=== PATIENT | female | born 1950 | race Caucasian/White ===

== ENCOUNTER 2017-05-12 05:09 | Emergency (ER) | payer MEDICARE ==
[~2017-05-12] VITALS: Ht 160 cm; Wt 62.6 kg
--- NOTE | ~2017-05-12 | US67 ---
[facility] A Service of [facility] RADIOLOGY TEXT RESULTS PATIENT: KHANH ROA LOCATION: [facility] : [birth year] UNIT #: [id number] AGE: [address]: Ebenezer Oneil MD SEX: F ORDER DR: [id number] [facility] [address] [place], [place] [address] [id number] E MR#: [id number] Acc #: [id number] NAME: KHANH ROA : 1950 SEX: F STUDY DATE/TIME: 05/12/2017 8:44 UNIT: [facility] ROOM: STUDY DESCRIPTION: Gallbladder Attending Physician: Ebenezer Oneil M.D. Ordering Physician: Ebenezer Oneil M.D. Primary Care Physician: Jairo Gonzales M.D. MEDICAL IMAGING REPORT This report is preliminary unless electronic signature is present EXAM Gallbladder ultrasound, 05/12. INDICATIONS Severe epigastric pain since 11 o'clock last night. FINDINGS Sonographic evaluation is performed of the right upper quadrant in multiple planes. Comparison made with CT abdomen from 08/06/2010. Pancreas is normal. Liver parenchyma is homogeneous and normal with no focal mass. Main portal vein is patent by Doppler. Right kidney is morphologically normal and nonobstructed. Gallbladder contains multiple stones, including a stone at the gallbladder neck. There is no gallbladder wall thickening or pericholecystic fluid. Common duct is normal for patient age at 7 mm internal diameter. Music Executive notes a negative sonographic Erickson's sign. IMPRESSION Cholelithiasis. The gallbladder is otherwise normal and there is no biliary obstruction. Remainder of the right upper quadrant ultrasound is within normal limits as well. Dictated by... Ebenezer Pineda Jr., M.D. THIS IS AN ELECTRONICALLY VERIFIED REPORT Ebenezer Pineda Jr., M.D. at 05/12/2017 3:48 PM DAVID/chung TD: 05/12/2017 13:34 JOB #: [id number] MEDICAL IMAGING REPORT [facility] A Service of [facility] RADIOLOGY TEXT RESULTS PATIENT: [facility]ANH [id number] [birth year] UNIT #: [id number] AGE: [address]: Ebenezer Oneil MD SEX: F ORDER DR: Page 1 of 1 COPY
--- NOTE | ~2017-05-12 | EKG ---
PATIENT: KHANH ROA UNIT #: [id number] Ventricular Rate: 67 BPM Atrial Rate: 67 BPM P-R Interval: 184 ms QRS Duration: 80 ms Q-T Interval: 440 ms QTC Calculation(Bezet): 464 ms P [place]: 60 degrees Calculated R [place]: 58 degrees Calculated T [place]: 28 degrees Diagnosis Line: Sinus rhythm with Premature supraventricular Diagnosis Line: complexes and Fusion complexes Diagnosis Line: Low voltage QRS Diagnosis Line: Septal infarct , age undetermined Diagnosis Line: Abnormal ECG Diagnosis Line: No previous ECGs available Diagnosis Line: Confirmed by KENYON RAMIREZ MD ([id number]) on 05/12/2017 Diagnosis Line: 10:11:12 PM INTERPRETING MD: ASHLEY CONTRERAS
[~2017-05-12 05:09] MED LIST: ALLEGRA PO; ASPIRIN PO; FISH OIL 1,0001 CAP PO; LOTREL 5/10 PO; MULTI-VITAMIN1 TAB PO
[2017-05-12 06:36] LABS: URINE SOURCE CLEAN CATCH
[2017-05-12 06:41] LABS: POC - CKMB 1.5 ng/mL (0.0-7.9); POC - TROPONIN <0.05 ng/mL (<=0.05)
[2017-05-12 06:47] LABS: URINE APPEARANCE TURBID; URINE BILIRUBIN NEG (NEG); URINE BLOOD 1+ (NEG); URINE COLOR YELLOW; URINE GLUCOSE NEG (NEG); URINE KETONE NEG (NEG); URINE LEUKOCYTE ESTERASE NEG (NEG); URINE NITRATE NEG (NEG); URINE PH 8.5 (5-8); URINE PROTEIN NEG (NEG); URINE SPECIFIC GRAVITY 1.014 (1.003-1.035); URINE UROBILINOGEN 0.2 MG/DL (NEG)
[2017-05-12 06:51] LABS: BASOPHIL# 0.1 X10e3 (0-0.3); BASOPHIL% 0.4 % (0-2.5); DIFF IND NO; EOSINOPHIL% 0.2 % (0.0-7.0); HEMATOCRIT 45.7 % (35.0-45.0); HEMOGLOBIN 15.3 gm/dL (12.0-16.0); LYMPHOCYTE# 1.3 X10e3 (1.0-3.5); LYMPHOCYTE% 10.1 % (17.0-45.0); MEAN CELL VOLUME 87.5 FL (83-96); MEAN CORPUSCULAR HEMOGLOBIN 29.2 PG (28-34); MEAN CORPUSCULAR HGB CONC 33.4 g/dL (30-36); MEAN PLATELET VOLUME 9.4 FL (6.5-11.5); MONOCYTE# 0.7 X10e3 (0-1.0); MONOCYTE% 5.5 % (3.0-12.0); NEUTROPHIL# 10.7 X10e3 (1.5-7.1); NEUTROPHIL% 83.8 % (40-75); PLATELET COUNT 201 X10e3 (140-420); RED BLOOD COUNT 5.23 X10e (3.90-5.30); RED CELL DISTRIBUTION WIDTH 14.1 % (11.0-15.5); WHITE BLOOD COUNT 12.7 X10e3 (4.0-10.5)
[2017-05-12 06:51] LABS: URINE BACTERIA AUWI NEG (NEGATIVE); URINE SQUAMOUS EPITHELIAL CELL NONE SEEN /[HPF]; UWBCS1 AUWI 0-2 (0-5)
[2017-05-12 07:03] LABS: CULTURE INDICATED? NO
[2017-05-12 07:06] LABS: URINE AMORPHOUS SEDIMENT AMORP PHOSPHATES
[2017-05-12 07:16] LABS: ALBUMIN SERUM 4.7 g/dL (3.5-5.0); BILIRUBIN, DIRECT 0.1 mg/dL (0.0-0.2); BILIRUBIN,INDIRECT 0.7 mg/dL (0.0-0.9); BILIRUBIN,TOTAL 0.8 mg/dL (0.2-2.0); CALCIUM SERUM 9.8 mg/dL (8.4-10.2); GLOM FILT RATE Estimated 57.9 mL/min (>60); POTASSIUM 3.7 mmol/L (3.5-5.1); PROTEIN TOTAL SERUM 7.7 g/dL (6.0-8.3)
[2017-05-22] MEDS ORDERED: VISION VITAMIN1 EACH PO (12:04)
[2017-05-22] MEDS ORDERED: EFFEXOR37.5 MG PO (12:04)
[2017-05-22] MEDS ORDERED: LOVASTATIN20 M1 PO (12:04)
[2017-05-22] MEDS ORDERED: AMLODIPINE-BEN1 EAC1 PO (12:04)
[2017-05-22] MEDS ORDERED: HARD NAILS2500 MCG PO (12:05)
[2017-05-22] MEDS ORDERED: ASPIRIN81 M2 PO (12:05)
[2017-05-22] MEDS ORDERED: RESVERATROL100 MG PO (12:05)
[2017-05-22] MEDS ORDERED: VITAMIN D35000 UNIT PO (12:05)
[2017-05-22] MEDS ORDERED: [UNRECOGNIZED DRUG - REMARK] (12:06)
== END 2017-05-12 10:13 | disposition home or self-care (01) ==
LOC: CED 05:09
PROVIDERS: Emergency Medicine
DX: K80.50 Calculus of bile duct without cholangitis or cholecystitis without obstruction (principal); I10 Essential (primary) hypertension; F17.200 Nicotine dependence, unspecified, uncomplicated
CPT/HCPCS: 36415; 76705; 80048; 80076; 81003; 82150; 82553; 83690; 84484; 85025; 93005; 96361; 96374; 96375; 99285; J1885; J2270; J2405

== ENCOUNTER → 2017-05-22 | Outpatient (CLI) | payer OTHER ==
[~2017-05-22] MED LIST changes: +AMLODIPINE-BEN1 EAC1 PO; +ASPIRIN81 M2 PO; +EFFEXOR37.5 MG PO; +HARD NAILS2500 MCG PO; +LOVASTATIN20 M1 PO; +RESVERATROL100 MG PO; +VISION VITAMIN1 EACH PO; +VITAMIN D35000 UNIT PO; +[UNRECOGNIZED DRUG - REMARK]
[2017-05-22 13:12] LABS: ALBUMIN SERUM 4.1 g/dL (3.5-5.0); BILIRUBIN,TOTAL 0.5 mg/dL (0.2-2.0); BUN/CREATININE RATIO 21.25; CALCIUM SERUM 9.5 mg/dL (8.4-10.2); CREATININE SERUM 0.8 mg/dL (0.6-1.4); GLOM FILT RATE Estimated 75.3 mL/min (>60); PROTEIN TOTAL SERUM 6.9 g/dL (6.0-8.3)
== END | disposition home or self-care (01) ==
LOC: CAMB 11:33
PROVIDERS: Surgery
DX: Z01.812 Encounter for preprocedural laboratory examination (principal)
CPT/HCPCS: 36415; 80053

== ENCOUNTER → 2017-05-29 | Day surgery (SDC) | payer MEDICARE ==
--- NOTE | ~2017-05-29 | OR ---
Unit #: [id number] #: [id number] Patient: KHANH ROA [id number] [address] [place], [place] [address] [id number] O MR#: [id number] NAME: KHANH ROA ROOM: Date of Procedure: 05/29/2017 Admission Date: 05/29/2017 Surgeon: Jasmeet Watson Jr., M.D. : 1950 Attending Physician: Jasmeet Watson Jr., M.D. Primary Care Physician: Jairo Gonzales M.D. OPERATIVE REPORT INDICATIONS FOR PROCEDURE The patient is a 67-year-old white female, recently presented to the office complaining of intermittent mid epigastric and right upper quadrant abdominal pain. She has been worked up, noted to have evidence of chronic cholecystitis and cholelithiasis. It was felt she has been having biliary colic. She is brought in this time for laparoscopic cholecystectomy at her request. She understands the procedure including the risk and consents. Preoperative liver function tests are normal. PREOPERATIVE DIAGNOSES Chronic cholecystitis, cholelithiasis with biliary colic. POSTOPERATIVE DIAGNOSES Acute and chronic cholecystitis with cholelithiasis. Also, noted instantly was a small hernia in the right lower quadrant abdominal wall area near the inguinal region. ANESTHESIA General with endotracheal intubation and 0.5% Marcaine with epinephrine locally. SECURITY SOFTWARE ENGINEER Marylou Sauceda. PROCEDURE PERFORMED Laparoscopic cholecystectomy with lysis of adhesions. DESCRIPTION OF PROCEDURE The patient was positioned in supine position. After being anesthetized and intubated, she was prepped and draped in routine fashion for laparoscopic cholecystectomy. A small 0.5-cm incision was made in the right lateral abdominal wall area and a 5-mm Optiview was introduced in the abdomen. The abdomen was then inflated and the camera introduced and there was no evidence of any injury related to introduction of the Optiview. Brief intra-abdominal exploration was carried out. The patient was noted to have adhesions stuck to the gallbladder, but no significant adhesions in the lower abdomen. A 0.5 cm incision was made below the umbilicus. A 5-mm port was placed in this area and the camera shifted to this port. An additional 5-mm port was placed laterally to the initial Optiview port and 11-mm port just to the right of the upper midline. The gallbladder was then noted to be significantly inflamed, both acutely and chronically. It was then lifted. Multiple adhesions were dissected free Unit #: [id number] #: [id number] Patient: KHANH ROA by both sharp and blunt dissection. After mobilizing the adhesions from the gallbladder, dissection was carried out in the triangle of Calot. The anatomy was somewhat distorted in the triangle of Calot and special care was taken not to have any complications with the common duct problem. Cystic duct and cystic artery were both dissected out. The right hepatic artery was very dominant and very obvious in this area. Also, the common duct appeared normal. The cystic artery was hemoclipped x3, and divided. Cystic duct was hemoclipped x4 and divided, approximately a centimeter from its junction with the common duct. The gallbladder was then removed from its bed with the hook cautery using a current of 20, and there were significant inflammatory changes posterior to the gallbladder and it was also intrahepatic at stone. After it was released, it was placed in EndoCatch bag and brought out through the larger port site and sent to Pathology. The port was replaced. Subhepatic space irrigated. A small amount of oozing from the gallbladder bed was then controlled with the hook cautery using a current of 30 and after total hemostasis was noted, the clips on cystic duct and cystic artery were visualized with no evidence of any leak or bleeding. After a small amount of blood was then removed with the suction, the area was again checked and there was no evidence of any bleeding at all noted. The fascia in the larger port site was approximated with the neoClose technique and the ports were removed. There was no evidence any bleeding from the port sites. The port sites were injected with 0.5% Marcaine with epinephrine and irrigated and coagulated with Bovie cautery. After hemostasis was noted, the skin edges on all the wounds were approximated with stainless-steel skin clips and skin stapling device. Sterile dressings were applied externally. Estimated blood loss approximately 100 mL. The patient received a total of approximately 1500 to 2000 mL of crystalloid solution during the procedure. Sponges and instruments counts were correct x3. No drains used. No complications. The patient was taken to the recovery room with stable vital signs in satisfactory condition. Dictated by... Jasmeet Watson Jr., M.D. SHANTEL/melania TD: 05/30/2017 10:05 JOB #: [id number] CC: Jairo Gonzales M.D. OPERATIVE REPORT Page 1 of 1 X Jasmeet Watson MD PROCEDURE OPERATIVE NOTE
== END | disposition home or self-care (01) ==
LOC: CSUR 08:29
DX: K80.10 Calculus of gallbladder with chronic cholecystitis without obstruction (principal); I10 Essential (primary) hypertension; E78.5 Hyperlipidemia, unspecified; M81.0 Age-related osteoporosis without current pathological fracture; R79.89 Other specified abnormal findings of blood chemistry; E78.00 Pure hypercholesterolemia, unspecified; Z87.442 Personal history of urinary calculi; Z79.82 Long term (current) use of aspirin; Z79.899 Other long term (current) drug therapy; Z79.52 Long term (current) use of systemic steroids; Z87.891 Personal history of nicotine dependence
CPT/HCPCS: 88304; J0330; J0690; J1100; J1650; J2250; J2405; J2710; J3010